=== PATIENT | female | born 1990 | race Two or more races ===

== ENCOUNTER 2017-02-06 10:38 | Emergency (ER) | payer OTHER ==
[~2017-02-06] VITALS: Ht 167.6 cm; Wt 98.7 kg
[2017-02-06 11:07] LABS: POINT-OF-CARE METER ID UU13113702
[2017-02-06 11:36] LABS: EOSINOPHIL (%) 0.1 % (0-5); HEMATOCRIT 36.4 % (36.0-46.0); IMMATURE GRANULOCYTE (%) 0.5 % (0.0-0.7); IMMATURE GRANULOCYTE COUNT 0.1 K/uL; INSTRUMENT ABS NEUTROPHIL CT 8.1 K/uL; LYMPHOCYTE COUNT 2.1 K/uL (1.0-2.8); MCV 94.1 FL (83-99); MEAN PLAT.VOLUME 12.5 uM^3 (9.5-12.4); MONOCYTE (%) 5.7 % (3-12); MONOCYTE COUNT 0.6 K/uL (0-0.8); NEUTROPHIL (%) 73.9 % (45-76); NEUTROPHIL COUNT 8.1 K/uL (1.8-6.4); PLATELET COUNT 192 K/uL (156-360); RBC DIS.WIDTH-CV 12.7 % (11.8-14.6); RBC DIS.WIDTH-SD 43.5 % (39-53); RED BLOOD COUNT 3.87 M/uL (3.80-5.20); WHITE BLOOD COUNT 10.9 K/uL (4.1-10.2)
[2017-02-06 11:44] LABS: CHLORIDE 108 mEq/L (99-109); POTASSIUM 3.9 mEq/L (3.7-5.4); SODIUM 138 mEq/L (136-147)
[2017-02-06 11:45] LABS: MAGNESIUM 1.6 mg/dL (1.3-2.7)
[2017-02-06 11:46] LABS: GLUCOSE 74 mg/dL (70-99)
[2017-02-06 11:48] LABS: ANION GAP 10 MEQ/L (2-14)
[2017-02-06 11:51] LABS: UREA NITROGEN (BUN) 5 mg/dL (9-23)
[2017-02-06 11:53] LABS: GFR ESTIMATE (CALCULATED) > 59 mL/min/
[2017-02-06 13:39] LABS: ADD MIUA? YES; BILIRUBIN NEGATIVE; BLOOD NEGATIVE; COLOR AMBER ((YELLOW)); GLUCOSE (STRIP) NEGATIVE; KETONES NEGATIVE; LEUKOCYTES MODERATE; NITRITE NEGATIVE; PROTEIN (STRIP) 30; SPECIFIC GRAVITY 1.019 (1.000-1.030); UROBILINOGEN 0.2 MG/DL (0.2-1.0)
[2017-02-06 13:49] LABS: BACTERIA 3+ /HPF; CALCIUM OXALATE CRYSTALS 3+ /HPF; EPITHELIAL CELLS 1+ /HPF; MUCUS 3+ /LPF; RED BLOOD CELLS 0-5 /HPF (0-5); UCUL ADDED? YES; WHITE BLOOD CELLS 15-20 /HPF (0-5); WHITE BLOOD CELLS CLUMP MOD /HPF (0-5)
[2017-02-06] MEDS ORDERED: MACROBID100 MG PO (14:06)
[2017-02-06 14:15] VITALS: BP 109/70
== END 2017-02-06 14:35 | disposition home or self-care (01) ==
LOC: EME 10:38
PROVIDERS: Emergency Medicine
DX: O23.03 Infections of kidney in pregnancy, third trimester (principal); N39.0 Urinary tract infection, site not specified; O99.343 Other mental disorders complicating pregnancy, third trimester; F41.0 Panic disorder [episodic paroxysmal anxiety]; F32.9 Major depressive disorder, single episode, unspecified; Z3A.37 37 weeks gestation of pregnancy
CPT/HCPCS: 80048; 81003; 82948; 83735; 85025; 87086; 99281; 99284

== ENCOUNTER 2017-02-15 16:48 | Outpatient (CLI) | payer OTHER ==
[~2017-02-15] VITALS: Ht 167.6 cm; Wt 101.8 kg
[~2017-02-15 16:48] MED LIST: MACROBID100 MG PO
[2017-02-15 17:02] VITALS: BP 132/78
[2017-02-15] MEDS ORDERED: ZOLOFT100 MG PO (17:18)
[2017-02-15] MEDS ORDERED: ESSENTIAL DAIL1 EACH PO (17:18)
[2017-02-15] MEDS ORDERED: DICLEGIS DR 101 EACH PO (17:19)
== END 2017-02-15 18:02 | disposition home or self-care (01) ==
LOC: LDRP-OP 16:48 → 2WEST 16:51
DX: O36.8130 Decreased fetal movements, third trimester, not applicable or unspecified (principal); Z3A.38 38 weeks gestation of pregnancy
CPT/HCPCS: 59025; G0378

== ENCOUNTER 2017-02-20 02:18 | Inpatient (IN) | payer OTHER ==
[~2017-02-20] VITALS: Ht 167.6 cm; Wt 102.7 kg
[2017-02-20] VITALS (26 sets, daily range): BP systolic 108–131; BP diastolic 52–80
[~2017-02-20 02:18] MED LIST changes: +DICLEGIS DR 101 EACH PO; +ESSENTIAL DAIL1 EACH PO; +ZOLOFT100 MG PO
[2017-02-20] MEDS ORDERED: UNISOM SLEEP AI25 MG PO (03:30)
[2017-02-20 05:18] LABS: ADD MIUA? YES; BILIRUBIN NEGATIVE; BLOOD NEGATIVE; COLOR YELLOW ((YELLOW)); GLUCOSE (STRIP) NEGATIVE; KETONES NEGATIVE; LEUKOCYTES SMALL; NITRITE NEGATIVE; PROTEIN (STRIP) NEGATIVE; UROBILINOGEN 0.2 MG/DL (0.2-1.0)
[2017-02-20 05:27] LABS: BACTERIA RARE /HPF; EPITHELIAL CELLS RARE /HPF; MUCUS TRACE /LPF; RED BLOOD CELLS 0-5 /HPF (0-5); UCUL ADDED? NO; WHITE BLOOD CELLS 0-5 /HPF (0-5)
[2017-02-20 09:57] LABS: EOSINOPHIL (%) 0 % (0-5); HEMATOCRIT 34.2 % (36.0-46.0); IMMATURE GRANULOCYTE (%) 0.5 % (0.0-0.7); IMMATURE GRANULOCYTE COUNT 0.1 K/uL; INSTRUMENT ABS NEUTROPHIL CT 11.3 K/uL; LYMPHOCYTE COUNT 1.2 K/uL (1.0-2.8); MCH 30.5 PG (29.0-34.0); MCHC 32.5 G/DL (30.0-36.0); MEAN PLAT.VOLUME 13.2 uM^3 (9.5-12.4); MONOCYTE (%) 3.2 % (3-12); MONOCYTE COUNT 0.4 K/uL (0-0.8); NEUTROPHIL (%) 87.2 % (45-76); NEUTROPHIL COUNT 11.3 K/uL (1.8-6.4); PLATELET COUNT 188 K/uL (156-360); RBC DIS.WIDTH-CV 13.4 % (11.8-14.6); RBC DIS.WIDTH-SD 46.1 % (39-53); RED BLOOD COUNT 3.64 M/uL (3.80-5.20)
[2017-02-21] VITALS (8 sets, daily range): BP systolic 128–162; BP diastolic 67–77
[2017-02-21] MEDS ORDERED: MOTRIN800 MG PO (00:29)
[2017-02-21] MEDS ORDERED: PERCOCET 5/31 TABLET PO (00:29)
[2017-02-21 01:20] LABS: BASE EXCESS -8.9 mEq/L (-3 to +3); BICARBONATE 20.4 mEq/L (22-26); CARBOXY HGB 0.2 % (0-5); COMMENTS - BLOOD GASES VENOUS SAMPLE; METHEMOGLOBIN 1.7 % (0-1.5); PCO2 56 mm Hg (35-45); SITE UMBICAL CORD; pH 7.17 (7.35-7.45)
[2017-02-22 02:45] VITALS: BP 131/67
[2017-02-22 07:04] LABS: EOSINOPHIL (%) 0.1 % (0-5); HEMATOCRIT 29.5 % (36.0-46.0); IMMATURE GRANULOCYTE (%) 0.6 % (0.0-0.7); IMMATURE GRANULOCYTE COUNT 0.1 K/uL; INSTRUMENT ABS NEUTROPHIL CT 14.2 K/uL; LYMPHOCYTE COUNT 3.2 K/uL (1.0-2.8); MCH 30.7 PG (29.0-34.0); MCHC 31.9 G/DL (30.0-36.0); MCV 96.4 FL (83-99); MEAN PLAT.VOLUME 12.8 uM^3 (9.5-12.4); MONOCYTE (%) 7.3 % (3-12); MONOCYTE COUNT 1.4 K/uL (0-0.8); NEUTROPHIL (%) 74.8 % (45-76); NEUTROPHIL COUNT 14.2 K/uL (1.8-6.4); PLATELET COUNT 159 K/uL (156-360); RBC DIS.WIDTH-CV 13.8 % (11.8-14.6); RBC DIS.WIDTH-SD 49.1 % (39-53); RED BLOOD COUNT 3.06 M/uL (3.80-5.20)
[2017-02-22 09:36] VITALS: BP 124/78
[2017-02-22 11:11] VITALS: BP 128/83
[2017-02-22 15:32] VITALS: BP 133/70
[2017-02-22 19:21] VITALS: BP 149/82
[2017-02-22 23:04] VITALS: BP 128/60
[2017-02-23 14:25] VITALS: BP 128/66
[2017-02-23 21:50] VITALS: BP 135/77
[2017-02-24 08:30] VITALS: BP 140/76
[2017-02-24 15:35] VITALS: BP 167/91
[2017-02-24 23:00] VITALS: BP 134/81
== END 2017-02-25 17:01 | disposition home or self-care (01) | DRG 766 ==
LOC: LDRP-OP 02:18 → 2WEST 02:19 → LDRP-OP 03-29 18:21
PROVIDERS: Midwife; Nurse Practitioner; Obstetrics & Gynecology
DX: O65.4 Obstructed labor due to fetopelvic disproportion, unspecified (principal); O62.1 Secondary uterine inertia; O99.344 Other mental disorders complicating childbirth; F32.9 Major depressive disorder, single episode, unspecified; F41.9 Anxiety disorder, unspecified; O99.214 Obesity complicating childbirth; E66.9 Obesity, unspecified; Z68.33 Body mass index [BMI] 33.0-33.9, adult; Z3A.37 37 weeks gestation of pregnancy; Z37.0 Single live birth
CPT/HCPCS: 36600; 81003; 82803; 85025; 88307; C1755; G0378; J0595; J1100; J1200; J1580; J2274; J2300; J2405; J3010; J7120